=== PATIENT | female | born 1995 | race Caucasian/White ===

== ENCOUNTER 2016-07-18 03:01 | Emergency (ER) | payer OTHER ==
[~2016-07-18] VITALS: Ht 167.6 cm; Wt 86.2 kg
[2016-07-18 03:01] VITALS: BP 118/64
[~2016-07-18 03:01] MED LIST: AMOXICILLIN500 M2 PO; AUGMENTIN 875875 MG PO; CEPHALEXIN500 M1 PO; CIPRO250 MG PO; CIPRODEX 0.3%-7.5 ML OT; CLARITIN10 MG PO; CYCLOBENZAPRINE10 MG PO; HYDROCODONE BIT1 T11 PO; MACROBID100 M1 PO; MEDROL DOSEPAK4 MG PO; Motrin,Rufen800 MG PO; NKHM; PRENATAL1 TA1 PO; PRENATAL1 TA6 PO; PREVACID15 MG PO; VIBRAMYCIN100 MG PO; ZITHROMAX Z PA250 MG PO; ZOFRAN ODT4 MG SL
[2016-07-18 03:23] LABS: BASO % 0.2 % (0.0-1.0); EOS # 0.1 10*3/uL (0.0-0.4); HEMATOCRIT 39.4 % (37.0-47.0); HEMOGLOBIN 13.4 g/dl (12.0-16.0); LYMPH # 4.3 10*3/uL (1.3-4.4); LYMPH % 36.1 % (27.0-41.0); MEAN CELL VOLUME 81.2 fl (81.0-99.0); MEAN CORPUSCULAR HGB 27.6 pg (27.0-31.0); MEAN PLATELET VOLUME 11.6 fl (9.6-12.3); MONO # 0.6 10*3/uL (0.1-1.0); MONO % 4.9 % (3.0-9.0); NEUT # 6.8 10*3/uL (2.3-7.9); NEUT % 57.5 % (47.0-73.0); PLATELET COUNT AUTOMATED 256 10*3/uL (130-400); RED BLOOD COUNT 4.85 10*6/uL (4.10-5.10); RED CELL DISTRI WIDTH 12.1 % (0-14.5); WHITE BLOOD COUNT 11.8 10*3/uL (4.8-10.8)
[2016-07-18 03:35] LABS: PROTHROMBIN TIME 10.4 SECONDS (9.0-12.4)
[2016-07-18 03:43] LABS: ALKALINE PHOSPHATASE 66 U/L (45-117); BILIRUBIN, TOTAL 0.2 mg/dl (0.2-1.0); BUN 17 mg/dl (7-24); CARBON DIOXIDE 27 mmol/L (21-32); CHLORIDE 104 mmol/L (98-107); EST GLOM FILT AFRICAN AMERICAN > 60 ml/min; GLUCOSE 99 mg/dL (65-99); MAGNESIUM 2.1 mg/dL (1.5-2.1); POTASSIUM 4.2 mmol/L (3.5-5.1); SGOT/AST 17 IU/L (3-35); SGPT/ALT 22 U/L (12-78); SODIUM 139 mmol/L (136-145); TOTAL PROTEIN 7.8 gm/dL (6.4-8.2)
[2016-07-18 03:45] LABS: TROPONIN I < 0.015 ng/ml (<0.045)
== END 2016-07-18 06:37 | disposition home or self-care (01) ==
LOC: ED 03:01
PROVIDERS: Emergency Medicine Emergency Medical Services
DX: R09.1 Pleurisy (principal); Z32.01 Encounter for pregnancy test, result positive

== ENCOUNTER → 2016-07-20 | Outpatient (CLI) | payer OTHER | END | disposition home or self-care (01) | LOC: LAB 16:09 | DX: N92.0 Excessive and frequent menstruation with regular cycle (principal) ==

== ENCOUNTER 2016-07-24 12:11 | Emergency (ER) | payer OTHER ==
[~2016-07-24] VITALS: Ht 170.1 cm; Wt 72.6 kg
--- NOTE | ~2016-07-24 | EKG ---
[place], [place] ELECTROCARDIOGRAM REPORT NAME: CHUCHO PINEDA UNIT #: [id number] ROOM: DOCTOR: FLOR JONES MD BIRTHDATE: [birth year] DOS: 07/24/2016 TIME: 1308. FINDINGS: Normal sinus rhythm. Poor precordial R wave progression. Otherwise, normal electrocardiogram. FLOR JONES MD CM:EKGRPT:ELECTROCARDIOGRAM REPORT [id number] FLOR JONES MD
[2016-07-24 12:44] VITALS: BP 111/81
[2016-07-24 13:38] LABS: BASO % 0.4 % (0.0-1.0); EOS # 0.1 10*3/uL (0.0-0.4); EOS % 1.5 % (1.0-4.0); HEMATOCRIT 40.3 % (37.0-47.0); HEMOGLOBIN 13.4 g/dl (12.0-16.0); LYMPH # 2.5 10*3/uL (1.3-4.4); LYMPH % 30.3 % (27.0-41.0); MEAN CELL VOLUME 81.3 fl (81.0-99.0); MEAN CORPUSCULAR HGB CONC 33.3 g/dl (33.0-37.0); MEAN PLATELET VOLUME 11.6 fl (9.6-12.3); MONO # 0.4 10*3/uL (0.1-1.0); MONO % 5.1 % (3.0-9.0); NEUT % 62.3 % (47.0-73.0); PLATELET COUNT AUTOMATED 250 10*3/uL (130-400); RED BLOOD COUNT 4.96 10*6/uL (4.10-5.10); RED CELL DISTRI WIDTH 12.3 % (0-14.5); WHITE BLOOD COUNT 8.1 10*3/uL (4.8-10.8)
[2016-07-24 13:54] LABS: ALBUMIN 3.8 gm/dl (3.1-4.5); ALKALINE PHOSPHATASE 69 U/L (45-117); BILIRUBIN, TOTAL 0.4 mg/dl (0.2-1.0); BUN 12 mg/dl (7-24); CARBON DIOXIDE 26 mmol/L (21-32); CHLORIDE 108 mmol/L (98-107); EST GLOM FILT AFRICAN AMERICAN > 60 ml/min; GLUCOSE 86 mg/dL (65-99); POTASSIUM 4.2 mmol/L (3.5-5.1); SGOT/AST 15 IU/L (3-35); SGPT/ALT 25 U/L (12-78); SODIUM 142 mmol/L (136-145); TOTAL PROTEIN 7.2 gm/dL (6.4-8.2)
[2016-07-24] MEDS ORDERED: Motrin,Rufen800 MG PO (15:19)
== END 2016-07-24 15:25 | disposition home or self-care (01) ==
LOC: ED 12:11
PROVIDERS: Registered Nurse
DX: O03.9 Complete or unspecified spontaneous abortion without complication (principal)

== ENCOUNTER 2017-04-05 18:29 | Emergency (ER) | payer OTHER ==
[~2017-04-05] VITALS: Ht 170.1 cm; Wt 72.6 kg
[2017-04-05 18:41] VITALS: BP 130/83
[2017-04-05] MEDS ORDERED: ADDERALL XR15 MG PO (18:44)
[2017-04-05] MEDS ORDERED: SERTRALINE HYDR50 MG PO (18:45)
[2017-04-05] MEDS ORDERED: TOPIRAMATE50 M2 PO (18:46)
[2017-04-05] MEDS ORDERED: MIRENA1 EACH IU (18:47)
[2017-04-05] MEDS ORDERED: AMOXICILLIN500 M2 PO ×2 (19:24→19:25)
[2017-04-05] MEDS ORDERED: OMNICEF300 MG PO (19:34)
== END 2017-04-05 19:31 | disposition home or self-care (01) ==
LOC: ED 18:29
DX: J02.9 Acute pharyngitis, unspecified (principal); J01.90 Acute sinusitis, unspecified; Z79.899 Other long term (current) drug therapy

== ENCOUNTER 2017-12-06 23:01 | Emergency (ER) | payer OTHER ==
[~2017-12-06] VITALS: Ht 167.6 cm; Wt 86.2 kg
--- NOTE | ~2017-12-06 | EKG ---
[place], [place] ELECTROCARDIOGRAM REPORT NAME: CHUCHO PINEDA UNIT #: [id number] ROOM: DOCTOR: EPIPHANY DRAFT REPORT BIRTHDATE: [birth year] [facility] Test Date: 2017-12-06 Test Time: 23:08:02 Pat Name: CHUCHO PINEDA Department: Room: Gender: F [employer] Helper: Beck Stubbs : 1995 Requested By: GIOVANI MCKEON Order Number: [id number] Reading MD: Glo Joel MD Measurements Intervals [place] Rate: 84 P: 41 GA: 148 QRS: 20 QRSD: 86 T: 48 QT: 367 QTc: 434 Interpretive Statements Sinus rhythm Low voltage, precordial leads Baseline wander in lead(s) V4 Electronically Signed On 12-08-2017 13:59:00 PDT by Glo Joel MD CM:EKGRPT:ELECTROCARDIOGRAM REPORT [id number] GIOVANI CAMACHO DRAFT REPORT GIOVANI MCKEON DO
[~2017-12-06 23:01] MED LIST changes: +ADDERALL XR15 MG PO; +MIRENA1 EACH IU; +OMNICEF300 MG PO; +SERTRALINE HYDR50 MG PO; +TOPIRAMATE50 M2 PO
[2017-12-06 23:22] LABS: BASO % 0.2 % (0.0-1.0); EOS # 0.1 10*3/uL (0.0-0.4); EOS % 0.7 % (1.0-4.0); HEMATOCRIT 38.4 % (37.0-47.0); HEMOGLOBIN 13.2 g/dl (12.0-16.0); LYMPH # 3.3 10*3/uL (1.3-4.4); LYMPH % 25.6 % (27.0-41.0); MEAN CELL VOLUME 82.6 fl (81.0-99.0); MEAN CORPUSCULAR HGB 28.4 pg (27.0-31.0); MEAN CORPUSCULAR HGB CONC 34.4 g/dl (33.0-37.0); MEAN PLATELET VOLUME 11.6 fl (9.6-12.3); MONO # 0.7 10*3/uL (0.1-1.0); MONO % 5.5 % (3.0-9.0); NEUT # 8.6 10*3/uL (2.3-7.9); NEUT % 67.7 % (47.0-73.0); PLATELET COUNT AUTOMATED 251 10*3/uL (130-400); RED BLOOD COUNT 4.65 10*6/uL (4.10-5.10); RED CELL DISTRI WIDTH 11.7 % (0-14.5); WHITE BLOOD COUNT 12.7 10*3/uL (4.8-10.8)
[2017-12-06 23:29] VITALS: BP 121/78
[2017-12-06 23:34] LABS: ACT PARTIAL THROMBO TIME 28.6 SECONDS (20.8-31.5)
[2017-12-06 23:40] LABS: ALBUMIN 4.2 gm/dl (3.1-4.5); ALKALINE PHOSPHATASE 74 U/L (45-117); BUN 13 mg/dl (7-24); CHLORIDE 105 mmol/L (98-107); CREATININE 0.79 mg/dL (0.55-1.02); POTASSIUM 3.7 mmol/L (3.5-5.1); SGOT/AST 11 IU/L (3-35); SGPT/ALT 24 U/L (12-78); SODIUM 139 mmol/L (136-145); TOTAL PROTEIN 7.9 gm/dL (6.4-8.2)
[2017-12-06 23:41] LABS: TROPONIN I < 0.015 ng/ml (<0.045)
[2017-12-07] MEDS ORDERED: NAPROSYN500 MG PO ×2 (00:20→00:36)
[2017-12-07] MEDS ORDERED: Motrin,Rufen800 MG PO (00:36)
== END 2017-12-07 01:28 | disposition home or self-care (01) ==
LOC: ED 23:01
PROVIDERS: Emergency Medicine
DX: M94.0 Chondrocostal junction syndrome [Tietze] (principal); Z79.899 Other long term (current) drug therapy

== ENCOUNTER → 2018-05-28 | Outpatient (CLI) | payer OTHER ==
[~2018-05-28] MED LIST changes: +NAPROSYN500 MG PO
[2018-05-28 16:43] LABS: PTH INTACT 41.8 pg/mL (18.5-88.0)
== END | disposition home or self-care (01) ==
LOC: LAB 14:23
PROVIDERS: Nurse Practitioner Family
DX: E83.51 Hypocalcemia (principal)

== ENCOUNTER 2018-07-08 12:11 | Emergency (ER) | payer OTHER ==
[~2018-07-08] VITALS: Ht 170.1 cm; Wt 86.2 kg
[2018-07-08 14:40] VITALS: BP 124/72
== END 2018-07-08 15:06 | disposition home or self-care (01) ==
LOC: ED 12:11
DX: S50.01XA Contusion of right elbow, initial encounter (principal); S09.90XA Unspecified injury of head, initial encounter; M54.2 Cervicalgia; Z79.899 Other long term (current) drug therapy; W11.XXXA Fall on and from ladder, initial encounter; Y93.89 Activity, other specified; Y92.89 Other specified places as the place of occurrence of the external cause; Y99.8 Other external cause status

== ENCOUNTER 2019-02-15 20:31 | Emergency (ER) | payer OTHER ==
[~2019-02-15] VITALS: Ht 170.1 cm; Wt 81.6 kg
[2019-02-15 20:32] VITALS: BP 119/68
[2019-02-15] MEDS ORDERED: KENALOG 0.1%80 GM T (20:52)
[2019-02-18 01:06] LABS: GONOCOCCUS BY NAA Negative (Negative)
== END 2019-02-15 22:06 | disposition home or self-care (01) ==
LOC: ED 20:31
PROVIDERS: Nurse Practitioner Family
DX: L30.9 Dermatitis, unspecified (principal); Z20.2 Contact with and (suspected) exposure to infections with a predominantly sexual mode of transmission; G43.909 Migraine, unspecified, not intractable, without status migrainosus; Z79.899 Other long term (current) drug therapy

== ENCOUNTER 2019-03-12 14:48 | Emergency (ER) | payer OTHER ==
[~2019-03-12] VITALS: Ht 170.1 cm; Wt 81.6 kg
[~2019-03-12 14:48] MED LIST changes: +KENALOG 0.1%80 GM T
[2019-03-12 14:51] VITALS: BP 121/81
[2019-03-12] MEDS ORDERED: TAMIFLU 75MG CA75 MG PO (15:33)
[2019-03-13] MEDS ORDERED: ROBITUSSIN DM 105 ML PO (14:28)
[2019-03-13] MEDS ORDERED: Motrin,Rufen800 MG PO (14:28)
[2019-03-13] MEDS ORDERED: ZYRTEC10 MG PO (14:28)
[2019-03-13] MEDS ORDERED: FLONASE ALLERG9.9 ML NAS (14:28)
== END 2019-03-12 16:00 | disposition home or self-care (01) ==
LOC: ED 14:48
DX: J10.1 Influenza due to other identified influenza virus with other respiratory manifestations (principal); Z79.899 Other long term (current) drug therapy

== ENCOUNTER 2019-03-13 13:26 | Emergency (ER) | payer OTHER ==
[~2019-03-13] VITALS: Ht 170.1 cm; Wt 81.6 kg
[~2019-03-13 13:26] MED LIST changes: +TAMIFLU 75MG CA75 MG PO
[2019-03-13 13:29] VITALS: BP 107/59
[2019-03-13] MEDS ORDERED: Motrin,Rufen800 MG PO (14:28)
[2019-03-13] MEDS ORDERED: ROBITUSSIN DM 105 ML PO (14:28)
[2019-03-13] MEDS ORDERED: FLONASE ALLERG9.9 ML NAS (14:28)
[2019-03-13] MEDS ORDERED: ZYRTEC10 MG PO (14:28)
== END 2019-03-13 14:45 | disposition home or self-care (01) ==
LOC: ED 13:26
DX: J06.9 Acute upper respiratory infection, unspecified (principal); J10.1 Influenza due to other identified influenza virus with other respiratory manifestations; G43.909 Migraine, unspecified, not intractable, without status migrainosus; Z79.899 Other long term (current) drug therapy

== ENCOUNTER 2019-04-04 00:07 | Emergency (ER) | payer OTHER ==
[~2019-04-04] VITALS: Ht 170.1 cm; Wt 81.6 kg
[~2019-04-04 00:07] MED LIST changes: +FLONASE ALLERG9.9 ML NAS; +ROBITUSSIN DM 105 ML PO; +ZYRTEC10 MG PO
[2019-04-04 00:19] VITALS: BP 107/67
[2019-04-04] MEDS ORDERED: KEFLEX500 M1 PO (01:02)
[2019-04-04] MEDS ORDERED: DIFLUCAN150 MG PO (01:02)
== END 2019-04-04 01:30 | disposition home or self-care (01) ==
LOC: ED 00:07
DX: J03.90 Acute tonsillitis, unspecified (principal); G43.909 Migraine, unspecified, not intractable, without status migrainosus; Z79.899 Other long term (current) drug therapy

== ENCOUNTER 2020-04-15 20:37 | Emergency (ER) | payer OTHER ==
[~2020-04-15] VITALS: Ht 172.7 cm; Wt 77.1 kg
[~2020-04-15 20:37] MED LIST changes: +DIFLUCAN150 MG PO; +KEFLEX500 M1 PO
[2020-04-15 20:46] VITALS: BP 121/86
[2020-04-15 21:19] LABS: BASO % 0.3 % (0.0-1.0); EOS # 0.1 10*3/uL (0.0-0.4); EOS % 0.9 % (1.0-4.0); LYMPH # 2.7 10*3/uL (1.3-4.4); LYMPH % 23.6 % (27.0-41.0); MEAN CELL VOLUME 83.5 fl (81.0-99.0); MEAN CORPUSCULAR HGB 27.5 pg (27.0-31.0); MEAN PLATELET VOLUME 11.8 fl (9.6-12.3); MONO # 0.7 10*3/uL (0.1-1.0); MONO % 6.3 % (3.0-9.0); NEUT # 7.9 10*3/uL (2.3-7.9); NEUT % 68.7 % (47.0-73.0); PLATELET COUNT AUTOMATED 255 10*3/uL (130-400); RED BLOOD COUNT 5.27 10*6/uL (4.10-5.10); RED CELL DISTRI WIDTH 11.7 % (0-14.5); WHITE BLOOD COUNT 11.5 10*3/uL (4.8-10.8)
[2020-04-15 21:36] LABS: ALBUMIN 4.5 gm/dl (3.1-4.5); ALKALINE PHOSPHATASE 69 U/L (45-117); BUN 12 mg/dl (7-24); CHLORIDE 107 mmol/L (98-107); CREATININE 0.83 mg/dL (0.55-1.02); LIPASE 58 U/L (73-393); POTASSIUM 3.1 mmol/L (3.5-5.1); SGOT/AST 11 IU/L (3-35); SGPT/ALT 26 U/L (12-78); SODIUM 138 mmol/L (136-145); TOTAL PROTEIN 8.1 gm/dL (6.4-8.2)
[2020-04-15 21:47] LABS: BILIRUBIN Negative (Negative); BLOOD Negative (Negative); CLARITY Cloudy (Clear); COLOR Yellow (Yellow); GLUCOSE Negative (Negative); KETONE 2+ (Negative); LEUKO ESTERASE Negative (Negative); NITRITE Negative (Negative); SPECIFIC GRAVITY 1.015 (1.001-1.030); UROBILINOGEN 0.2 E.U./dl (0.0-1.0)
[2020-04-15 21:57] LABS: BACTERIA 1+; EPITHELIAL CELLS 16-20; HYALINE CAST 0-2; RBC 0-2 rbc/hpf (0-2); WBC 0-2 wbc/hpf (0-5)
== END 2020-04-16 00:42 | disposition home or self-care (01) ==
LOC: ED 20:37
PROVIDERS: Emergency Medicine
DX: R11.2 Nausea with vomiting, unspecified (principal); R42 Dizziness and giddiness; G43.909 Migraine, unspecified, not intractable, without status migrainosus; F41.9 Anxiety disorder, unspecified; Z79.2 Long term (current) use of antibiotics; Z79.899 Other long term (current) drug therapy

== ENCOUNTER 2020-07-14 17:28 | Emergency (ER) | payer OTHER ==
[2020-07-14 17:43] VITALS: BP 134/57
[2020-07-14 20:02] LABS: BASO % 0.2 % (0.0-1.0); EOS % 0.1 % (1.0-4.0); HEMATOCRIT 44.6 % (37.0-47.0); LYMPH # 1.2 10*3/uL (1.3-4.4); LYMPH % 8.6 % (27.0-41.0); MEAN CORPUSCULAR HGB 28.4 pg (27.0-31.0); MEAN CORPUSCULAR HGB CONC 33.9 g/dl (33.0-37.0); MEAN PLATELET VOLUME 11.8 fl (9.6-12.3); MONO # 0.7 10*3/uL (0.1-1.0); NEUT # 11.7 10*3/uL (2.3-7.9); NEUT % 85.8 % (47.0-73.0); PLATELET COUNT AUTOMATED 246 10*3/uL (130-400); RED BLOOD COUNT 5.31 10*6/uL (4.10-5.10); RED CELL DISTRI WIDTH 11.9 % (0-14.5); WHITE BLOOD COUNT 13.6 10*3/uL (4.8-10.8)
[2020-07-14 20:18] LABS: ALBUMIN 4.4 gm/dl (3.1-4.5); ALKALINE PHOSPHATASE 81 U/L (45-117); BUN 21 mg/dl (7-24); CHLORIDE 111 mmol/L (98-107); CREATININE 1.08 mg/dL (0.55-1.02); POTASSIUM 4.1 mmol/L (3.5-5.1); SGOT/AST 12 IU/L (3-35); SGPT/ALT 24 U/L (12-78); SODIUM 140 mmol/L (136-145)
== END 2020-07-14 22:15 | disposition home or self-care (01) ==
LOC: ED 17:28
PROVIDERS: Emergency Medicine
DX: K52.9 Noninfective gastroenteritis and colitis, unspecified (principal); R11.10 Vomiting, unspecified; F17.200 Nicotine dependence, unspecified, uncomplicated; Z79.899 Other long term (current) drug therapy

== ENCOUNTER 2020-12-02 12:53 | Emergency (ER) | payer OTHER ==
[~2020-12-02] VITALS: Ht 170.1 cm; Wt 72.6 kg
[2020-12-02 13:16] VITALS: BP 90/60
[2020-12-02] MEDS ORDERED: CYCLOBENZAPRINE10 MG PO (16:39)
[2020-12-02] MEDS ORDERED: NAPROSYN500 MG PO (16:39)
== END 2020-12-02 17:02 | disposition home or self-care (01) ==
LOC: ED 12:53
DX: S16.1XXA Strain of muscle, fascia and tendon at neck level, initial encounter (principal); S70.02XA Contusion of left hip, initial encounter; Z79.899 Other long term (current) drug therapy; V43.52XA Car driver injured in collision with other type car in traffic accident, initial encounter; Y93.89 Activity, other specified; Y92.89 Other specified places as the place of occurrence of the external cause; Y99.8 Other external cause status

== ENCOUNTER → 2021-04-16 | Outpatient (CLI) | payer OTHER | END | disposition home or self-care (01) | LOC: US 15:00 | PROVIDERS: ATTEND Nurse Practitioner Women's Health | DX: T83.32XA Displacement of intrauterine contraceptive device, initial encounter (principal); R10.2 Pelvic and perineal pain; Y82.8 Other medical devices associated with adverse incidents ==

== ENCOUNTER 2021-08-19 14:06 | Emergency (ER) | payer OTHER ==
[2021-08-19 14:45] VITALS: BP 111/75
== END 2021-08-19 19:35 | disposition home or self-care (01) ==
LOC: ED 14:06
DX: S16.1XXA Strain of muscle, fascia and tendon at neck level, initial encounter (principal); S29.012A Strain of muscle and tendon of back wall of thorax, initial encounter; Z79.899 Other long term (current) drug therapy; V43.52XA Car driver injured in collision with other type car in traffic accident, initial encounter; Y93.89 Activity, other specified; Y92.89 Other specified places as the place of occurrence of the external cause; Y99.8 Other external cause status

== ENCOUNTER → 2023-02-26 | Outpatient (CLI) | payer OTHER | END | disposition home or self-care (01) | LOC: RAD 14:56 | PROVIDERS: ATTEND Nurse Practitioner Family | DX: R05.9 Cough, unspecified (principal); R51.9 Headache, unspecified; R11.0 Nausea; Z20.822 Contact with and (suspected) exposure to COVID-19 ==

== ENCOUNTER 2024-07-23 02:38 | Emergency (ER) | payer OTHER ==
[~2024-07-23] VITALS: Ht 170.2 cm; Wt 61.2 kg
[2024-07-23 02:53] VITALS: BP 121/79
[2024-07-23] MEDS ORDERED: ACETAMINOPHEN 325 MG TAB PO ONE (04:15)
[2024-07-23] MEDS ORDERED: IBUPROFEN 600 MG TAB PO ONE (04:15)
== END 2024-07-23 06:21 | disposition short-term general hospital (02) ==
LOC: ED 02:38
DX: S02.2XXA Fracture of nasal bones, initial encounter for closed fracture (principal); S01.511A Laceration without foreign body of lip, initial encounter; G43.909 Migraine, unspecified, not intractable, without status migrainosus; Z79.899 Other long term (current) drug therapy; Z98.890 Other specified postprocedural states; Y04.0XXA Assault by unarmed brawl or fight, initial encounter; Y93.89 Activity, other specified; Y92.89 Other specified places as the place of occurrence of the external cause; Y99.8 Other external cause status

== ENCOUNTER → 2024-12-30 | Outpatient (CLI) | payer OTHER ==
[2024-12-30 15:06] LABS: MEAN CELL VOLUME 86.8 fl (81.0-99.0); MEAN CORPUSCULAR HGB 28.5 pg (27.0-31.0); MEAN PLATELET VOLUME 11.0 fl (9.6-12.3); NUCLEATED RED BLOOD CELL 0.0 % (0.0-0.0); NUCLEATED RED BLOOD CELL 0.0 10*3/uL (0.0-0.0); PLATELET COUNT AUTOMATED 235.0 10*3/uL (130-400); RED CELL DISTRI WIDTH 11.9 % (0-14.5)
[2024-12-30 15:32] LABS: BUN 11 mg/dl (9-23); SGPT/ALT 88 U/L (5-49)
== END | disposition home or self-care (01) ==
LOC: LAB 14:52
PROVIDERS: ATTEND Family Medicine
DX: N39.0 Urinary tract infection, site not specified (principal); M54.9 Dorsalgia, unspecified

== ENCOUNTER → 2025-01-17 | Outpatient (CLI) | payer OTHER | END | disposition home or self-care (01) | LOC: RAD 12:19 | PROVIDERS: ATTEND Family Medicine | DX: M54.31 Sciatica, right side (principal); M54.50 Low back pain, unspecified ==

== ENCOUNTER → 2025-01-26 | Outpatient (CLI) | payer OTHER | END | disposition home or self-care (01) | LOC: RAD 14:37 | PROVIDERS: ATTEND Family Medicine | DX: M54.2 Cervicalgia (principal); M54.6 Pain in thoracic spine ==

== ENCOUNTER → 2025-02-11 | Outpatient (CLI) | payer OTHER | END | disposition home or self-care (01) | LOC: MRI 02:44 | PROVIDERS: ATTEND Family Medicine | DX: M47.814 Spondylosis without myelopathy or radiculopathy, thoracic region (principal); M25.78 Osteophyte, vertebrae; M51.34 Other intervertebral disc degeneration, thoracic region ==